=== PATIENT | female | born 1950 | race Caucasian/White ===

== ENCOUNTER 2016-07-12 06:35 | Day surgery (SDC) | payer OTHER ==
[2016-07-06 16:47] LABS: HEMATOCRIT 40.5 % (37-47); MEAN CELL VOLUME 87.9 fL (80-100); MEAN CORPUSCULAR HEMOGLOBIN 29.1 pg (25-34); MEAN CORPUSCULAR HGB CONC 33.1 g/dl (32-36); MEAN PLATELET VOLUME 10.6 fL (7.4-10.4); PLATELET COUNT 272 K/uL (130-400); RED BLOOD COUNT 4.61 M/uL (4.2-5.4); WHITE BLOOD COUNT 9.88 K/uL (4.8-10.8)
[2016-07-06 17:19] LABS: BLOOD UREA NITROGEN 21 mg/dl (7-18); CARBON DIOXIDE 32 mmol/L (21-32); CHLORIDE 103 mmol/L (98-107); CREATININE 0.96 mg/dl (0.60-1.20); GLUCOSE 98 mg/dl (70-99); SODIUM 140 mmol/L (136-145)
[2016-07-06 17:40] LABS: CALCIUM 9.4 mg/dl (8.5-10.1)
[~2016-07-12] VITALS: Ht 165.1 cm; Wt 113.5 kg
[~2016-07-12 06:35] MED LIST: PRLSR20 PO; SODIUM CHLORIDE 0.9% 1000ML IV SCH
[2016-07-12 06:50] VITALS: BP 182/81; PULSE 93; TEMP 36.7; O2SAT 96; Ht 165.1 cm; Wt 113.5 kg
[2016-07-12] MEDS ORDERED: EMOLOIN TOP (07:01)
[2016-07-12] MEDS ORDERED: AMOX500C3 PO (07:02)
[2016-07-12] MEDS ORDERED: SODIUM BICARB 8.4% INJ 50 MEQ/50 ML SYR IV ONE (07:38)
[2016-07-12] MEDS ORDERED: FENTANYL CITRATE INJ 50 MCG/1 ML 2 ML VIAL ONE (07:38)
[2016-07-12] MEDS ORDERED: LIDOCAINE/EPINEPHRINE 1% INJ 50 ML VIAL ONE ×2 (07:38→07:42)
[2016-07-12] MEDS ORDERED: MIDAZOLAM HCL 5 MG/ML 1 ML VIAL ONE (07:38)
--- NOTE | 2016-07-12 07:40 | History and Physical ---
History & Physical Date Jul 12, 2016. Chief Complaint Venous Insufficiency History of Present Illness The patient is a 66 year old female with prior slow healing lower extremity ulcerations in the setting of venous insufficiency. Patient previously followed by the wound clinic after presented with left medial malleolus superficial ulceration for approximately 2 months. Wound has since healed with wound care. Was seen at wound clinic after venous reflux ultrasound confirmed left GSV dilation and reflux. Patient here today for GSV ablation. Past Medical/Surgical History Medical Problems: (1) Obesity 2. GERD 3. Obesity Additional History Hepatic Disease: No Endocrine Disorder: No Kidney Disease: No Hypertension: No Heart Disease: No Bleeding Tendencies: No Infectious Diseases: No Allergies Coded Allergies: No Known Allergies (Unverified , 07/12/16) Home Medications Scheduled Amoxicillin (Amoxil), 4 CAP PO UD Emollient (Ointment Base), TOP UD Omeprazole (Prilosec), 20 MG PO DAILY Physical Examination Skin: warm/dry ENT: normal ENT inspection Neck: supple Respiratory/Chest: lungs clear Cardiovascular: regular rate, rhythm, no murmur Abdomen / GI: normal bowel sounds Extremities: + pertinent finding (varicose veins, chronic venous stasis skin changes, healed superficial ulceration) Neurologic/Psych: no motor/sensory deficits, alert Diagnosis Chronic venous insufficiency - CEAP 5 ASA Classification: ASA Class II Plan of Treatment Proceed with Left GSV ablation
--- NOTE | 2016-07-12 07:41 | Procedure Note ---
Pre-Mod Sedation Assessment General Date of Moderate Sedation: Jul 12, 2016. Vital Signs: Vital Signs Past 12 Hours Date Time Temp Pulse Resp B/P Pulse Ox O2 Delivery O2 Flow Rate FiO2 07/12/16 06:50 36.7 93 24 182/81 96 Room Air Review Cardiovascular: regular rate, rhythm, no edema Abdomen: normal bowel sounds, soft Lungs: lungs clear, normal breath sounds Airway Class: III Pre-Sedation Airway Assessment Oral Cavity: WNL Able to Visualize Vocal Cords: No Short Thick Neck: Yes Hx of Sleep Apnea: No Smoking Status: Former Smoker Mallampati Classification: Class III ASA Classification: Class II Procedure Planning Contraindications-for Mod Sed: None Yes Notes The planned sedation has been discussed with the patient and consent obtained. I have identified the patient, determined the appropriateness of sedation and have assessed the patient immediately prior to the procedure. All medicine(s) and interventions are by my order.
[2016-07-12 07:46] VITALS: BP 182/81; PULSE 93; TEMP 36.7; O2SAT 96
[2016-07-12] MEDS ORDERED: LIDOCAINE HCL 1% 20 ML VIAL ONE (08:18)
[2016-07-12] MEDS ORDERED: FENTANYL CITRATE INJ 50 MCG/1 ML 2 ML VIAL IV ONE ×2 (08:34→08:42)
[2016-07-12] MEDS ORDERED: LIDOCAINE HCL 1% 20 ML VIAL SQ ONE (08:39)
[2016-07-12] MEDS ORDERED: ORM MISCELLANEOUS MED XX ONE (08:56)
--- NOTE | 2016-07-12 09:12 | Procedure Note ---
Post-Mod Sedation Assessment General Date of Moderate Sedation Jul 12, 2016. Vital Signs: Vital Signs Past 12 Hours Date Time Temp Pulse Resp B/P Pulse Ox O2 Delivery O2 Flow Rate FiO2 07/12/16 07:46 36.7 93 24 182/81 96 Room Air 07/12/16 06:50 36.7 93 24 182/81 96 Room Air Review - Discharge Criteria Vital Signs Stable: Yes Alert/Oriented/Conversant: Yes Returned to Baseline Mental St: Yes Nausea Absent/Minimal: Yes Pain/Discomfort/Absent/Minimal: Yes Normal/Baseline Respirations: Yes Active Bleeding?: N/A Pt Received D/C Instructions: Yes Prescriptions Given: None Specific Proced. D/C Criteria Distal Pulses Present (Cardiac: Yes Groin site assessed-Card Cath: N/A Voided Prior To Discharge: N/A Discharged Patients Adult Escort/Transportation: Yes
[2016-07-12 09:15] VITALS: BP 145/75; PULSE 76; TEMP 36.9; O2SAT 94
--- NOTE | 2016-07-12 09:16 | [facility] Operative Report ---
Operative Report Operative Date Jul 12, 2016. Pre-Operative Diagnosis Venous Insufficiency Post-Operative Diagnosis Venous insufficiency Procedure(s) Performed Left GSV ablation Surgeon Dr. Koo Comber Fixer Surgeon(s) None Estimated Blood Loss 5 Findings Dilated GSV with reflux and distal varicosities. Specimens None Drains None Anesthesia Moderate Complication(s) None Disposition Recovery Room / PACU Indications Venous ulceration Description of Procedure US guided access Left GSV below the knee Catheter inserted, 3cm from SFJ. Tumescent injected. US confirmed not in deep system. 3:40, 11 cycles of RFA to left GSV. No complications. Patient tolerated well. US confirmed no DVT post procedure I attest to the content of the Intraoperative Record and any orders documented therein. Any exceptions are noted below.
--- NOTE | 2016-07-12 09:24 | Discharge Instructions ---
Discharge Instructions Date of Service Jul 12, 2016. Visit Reason for Visit: Venous Insufficiency Discharge Discharge Diagnosis / Problem: Chronic venous insufficiency Discharge Goals Goal(s): Decrease discomfort, Improve function, Therapeutic intervention Activity Recommendations Activity Limitations: as noted below Lifting Limitations: no more than 25 pounds Exercise/Sports Limitations: gradually increase as tolerated Shower/Bathe: may shower/bathe in 3 days Driving or Machine Use: resume 1 day after discharge Anesthesia . Post Anesthesia Instructions: If you have had General Anesthesia or IV Sedation: * Do not drive today. * Resume driving when surgeon permits. * Do not make important decisions or sign legal documents today. * Call surgeon for: 1. Temperature elevations greater than 101 degrees F. 2. Uncontrollable pain. 3. Excessive bleeding. 4. Persistent nausea and vomiting. 5. Medication intolerance (nausea, vomiting or rash). * For nausea and vomiting use only clear liquids such as: tea, soda, bouillon until nausea subsides, then gradually increase diet as tolerated. * If you have any concerns or questions, call your surgeon's office. If physician is unavailable and it is an emergency, call 911 or go to the nearest emergency room. . Instructions / Follow-Up Instructions / Follow-Up BROOKE wrap until night before bed, Sunday morning, wear your compression stockings and continue to wear indefinitely. Follow up Ultrasound as scheduled. Any severe pain, present to the emergency room concerned about DVT. Diet Recommendations Recommended Home Diet: resume previous diet Procedures Procedures Performed: Left Lower Extremity Greater Saphenous Vein Radiofrequency Ablation Pending Studies Studies pending at discharge: yes List of pending studies: Ultrasound Medical Emergencies . Who to Call and When: Medical Emergencies: If at any time you feel your situation is an emergency, please call 911 immediately. . Non-Emergent Contact Non-Emergency issues call your: Primary Care Provider, Collection Development Librarian . . "Provider Documentation" section prepared by Wayne Koo. .
[2016-07-12 09:45] VITALS: BP 162/68; PULSE 72; TEMP 36.6; O2SAT 95
[2016-07-12 10:15] VITALS: BP 176/65; PULSE 78; O2SAT 97
== END 2016-07-12 10:30 | disposition home or self-care (01) ==
LOC: C.ACU 06:35
PROVIDERS: ATTEND Internal Medicine Interventional Cardiology
DX: I87.2 Venous insufficiency (chronic) (peripheral) (principal); I83.892 Varicose veins of left lower extremity with other complications; K21.9 Gastro-esophageal reflux disease without esophagitis; E66.9 Obesity, unspecified; Z79.899 Other long term (current) drug therapy